=== PATIENT | female | born 1950 | race Caucasian/White ===

== ENCOUNTER 2020-01-11 00:18 | Emergency (ER) | payer OTHER, BC ==
[2020-01-11 00:22] VITALS: TEMP 98.6; BMI 25.7
[2020-01-11] MEDS ORDERED: SODIUM CHLORIDE 1,000 ML IV ONE (00:35)
[2020-01-11] MEDS ORDERED: ALPRAZolam 1 MG TABLET PO PRN (00:35)
--- NOTE | 2020-01-11 00:38 | PDOC ---
History of Present Illness - General Chief Complaint: Tremors Stated Complaint: TREMORS Time Seen by Provider: 01/11/20 00:33 History Source: Patient Exam Limitations: No Limitations - History of Present Illness Initial Comments: 01/11/20 00:36 This is a 70-year-old female who comes in complaining of tremors of her hands. Patient states she is unable to stop them from shaking. Patient denies any other complaints. Patient denies any recent illness, fever, chills, shortness of breath nausea vomiting or diarrhea. Patient takes no medications and is otherwise healthy. Allergies: as per nursing notes Past Medical History: none Social history: Lives with family. No smoking. No alcohol. No illicit drugs. Surgical history: None General: No fevers or chills, no weakness, no weight loss HEENT: No change in vision. No sore throat,. No ear pain CardioVascular: no chest discomfort. No shortness of breath Respiratory:No cough, or wheezing. Gastrointestinal: no nausea, vomiting, diarrhea or constipation, No rectal bleeding Genitourinary: No dysuria, hematuria, or frequency Musculoskeletal: No joint or muscle pain or swelling Neurologic: No headache, vertigo, dizziness or loss of consciousness Psychiatric: nor depression Skin: No rashes or easy bruising Endocrine: no increased thirst or abnormal weight change Allergic: no skin or latex allergy All other systems reviewed and normal Exam: General: Well-nourished well-developed individual, no acute distress HEENT: Throat: Normal, tonsils normal, no erythema or exudate Neck: Supple, no meningeal signs, no lymphadenopathy Eyes::Pupils equal reactive and round, extraocular motion intact Chest: Nontender to palpation Cardiac: S1-S2 normal, regular rate and rhythm, no murmurs rubs or gallops Respiratory: Lungs clear to auscultation bilateral Abdomen: Soft, nondistended, normal bowel sounds, there is no tenderness on palpation diffusely Extremities: Warm, dry, no cyanosis, clubbing, or edema Skin: No rashes Neuro: Alert and oriented x3, CN II - XII intact, nonfocal exam with normal stre ngth, normal sensation, normal reflexes, normal gait, Psych: Normal mood and affect Past History - Medical History Allergies/Adverse Reactions: Allergies Allergy/AdvReac Type Severity Reaction Status Date / Time No Known Allergies Allergy Verified 01/11/20 00:41 - Psycho-Social/Smoking History Smoking History: Never smoked Have you smoked in the past 12 months: No Information on smoking cessation initiated: No - Substance Abuse Hx (Audit-C & DAST Scrn) How often the patient has a drink containing alcohol: Never Score: In Men: 4 or > Positive; In Women: 3 or > Positive: 0 Screen Result (Pos requires Nsg. Audit-10AR): Negative In the last yr the pt used illegal drug/Rx for NonMed reason: No Score: Yes response is considered Positive: 0 Screen Result (Positive result requires Nsg. DAST-10): Negative *Physical Exam - Vital Signs Last Vital Signs Temp Pulse Resp BP Pulse Ox 98.6 F 114 H 22 H 183/104 H 99 01/11/20 00:19 01/11/20 00:19 01/11/20 00:19 01/11/20 00:19 01/11/20 00:19 ED Treatment Course - LABORATORY CBC & Chemistry Diagram: 01/11/20 00:42 01/11/20 00:42 - ADDITIONAL ORDERS Additional order review: Laboratory Results 01/11/20 00:28 POC Glucometer 245 01/11/20 00:28 POC Glucometer 245 Discharge - Discharge Information Problems reviewed: Yes Clinical Impression/Diagnosis: Shaking Disposition: HOME - Admission No - Follow up/Referral - Patient Discharge Instructions Additional Instructions: Return to the emergency department immediately with ANY new, persistent or worsening symptoms. Continue any medications as previously prescribed by your physician. You should follow up with your primary doctor as soon as possible regarding today's emergency department visit. . Please make sure your doctor reviews the results of your emergency evaluation. Thank you for coming to the Emergency Department today for your care. It was a pleasure to see you today. Please note that your evaluation is INCOMPLETE until you follow-up with your doctor. - Post Discharge Activity
[2020-01-11] MEDS ORDERED: ALPRAZolam 0.25 MG TABLET ONE (00:44)
[2020-01-11] MEDS ORDERED: ALPRAZolam 0.25 MG TABLET PO PRN (01:16)
[2020-01-11 01:24] LABS: BASO % 0.6 % (0-2.0); HEMATOCRIT 44.1 % (32.4-45.2); MCH 35.1 pg (25.7-33.7); MCHC 34.1 g/dl (32.0-36.0); MEAN CELL VOLUME 103.1 fl (80-96); MEAN PLT VOLUME 8.9 fl (7.5-11.1); MONO % 6.5 % (3.8-10.2); NEUT % 89.9 % (42.8-82.8); PLATELET COUNT 140 K/MM3 (134-434); RBC 4.28 M/mm3 (3.60-5.2); RDW 13.3 % (11.6-15.6); WHITE BLOOD COUNT 8.2 K/mm3 (4.0-10.0)
[2020-01-11 01:40] VITALS: BP 155/84; PULSE 79
[2020-01-11 01:48] LABS: ALBUMIN 4.1 g/dl (3.4-5.0); BILIRUBIN,TOTAL 1.6 mg/dL (0.2-1); BLOOD UREA NITROGEN 15.2 mg/dL (7-18); CALCIUM 9.4 mg/dL (8.5-10.1); CREATININE 0.9 mg/dL (0.55-1.3); POTASSIUM 3.5 mmol/L (3.5-5.1); TOT PROT 8.2 g/dl (6.4-8.2)
[2020-01-11 02:00] LABS: ANISOCYTOSIS 0; MACROCYTOSIS 0; OVALOCYTE 1+; PLATELET ESTIMATE DECREASED; TEAR DROP CELLS 1+
== END 2020-01-11 02:14 | disposition home or self-care (01) ==
LOC: FER 00:18
PROC: 3E0337Z Introduction of Electrolytic and Water Balance Substance into Peripheral Vein, Percutaneous Approach (ICD-10-PCS; principal; 2020-01-11)
DX: R25.1 Tremor, unspecified (principal)
CPT/HCPCS: 36415; 80053; 82962; 85025; 99284-25